=== PATIENT | female | born 1985 | race Caucasian/White ===

== ENCOUNTER 2017-07-28 14:36 | Inpatient (IN) | payer MEDICAID, MEDICARE, OTHER ==
[~2017-07-28] VITALS: Ht 160 cm; Wt 59.0 kg
[~2017-07-28 14:36] MED LIST: HYDR-3965 PO
[2017-07-28 15:06] LABS: BASOPHILS % (AUTO) 0.4 % (0-1); EOSINOPHILS # (AUTO) 0.1 X10'3 (0-0.9); EOSINOPHILS % (AUTO) 1.7 % (0-6); HEMATOCRIT 37.1 % (35.0-45.0); LYMPHOCYTES # (AUTO) 2.5 X10'3 (1.1-4.8); LYMPHOCYTES % (AUTO) 30.9 % (21-51); MEAN CORPUSCULAR HEMOGLOBIN 31.2 PG (27.0-31.0); MEAN CORPUSCULAR HGB CONC 34.9 % (33.0-36.5); MEAN CORPUSCULAR VOLUME 89.3 FL (78-98); MEAN PLATELET VOLUME 7.3 FL (7.4-10.4); MONOCYTES # (AUTO) 0.6 X10'3 (0-0.9); MONOCYTES % (AUTO) 6.9 % (2-12); NEUTROPHILS # (AUTO) 4.9 X10'3 (1.8-7.7); NEUTROPHILS % (AUTO) 60.1 % (42-75); PLATELET COUNT 288 X10'3 (140-440); RED BLOOD COUNT 4.16 X10'6 (4.20-5.60); RED CELL DISTRIBUTION WIDTH 13.1 % (11.5-14.5); WHITE BLOOD COUNT 8.1 X10'3 (4.5-11.0)
[2017-07-28] MEDS ORDERED: nitroGLYCERIN 0.4mg SUBLingual tab SL PRN ×2 (15:15→16:15)
[2017-07-28] MEDS ORDERED: aspirin 81mg tab.chew PO ONE (15:15)
[2017-07-28 15:20] LABS: ALANINE AMINOTRANSFERASE 21 U/L (12-78); ALBUMIN 4.2 G/DL (3.4-5.0); ALBUMIN/GLOBULIN RATIO 1.2 (1.1-1.5); ALKALINE PHOSPHATASE 62 IU/L (46-116); ANION GAP 7 (8-16); ASPARTATE AMINO TRANSFERASE 9 U/L (10-37); BILIRUBIN,TOTAL 0.5 MG/DL (0.1-1.0); BLOOD UREA NITROGEN 16 MG/DL (7-18); BUN/CREATININE RATIO 16.7 (6.6-38.0); CALCIUM 9.1 MG/DL (8.5-10.1); CHLORIDE 104 MMOL/L (99-107); CREATININE 0.96 MG/DL (0.40-0.90); GLUCOSE 101 MG/DL (70-104); POTASSIUM 3.6 MMOL/L (3.5-5.1); SODIUM 140 MMOL/L (135-145); TOTAL PROTEIN 7.6 G/DL (6.4-8.2); eGFR 68 ML/MIN
[2017-07-28 15:43] LABS: MAGNESIUM 1.9 MG/DL (1.5-2.4)
[2017-07-28] MEDS ORDERED: HYDROmorphone inj. 0.5 MG/0.5 ML DISP.SYRIN IV PRN ×2 (16:15)
[2017-07-28] MEDS ORDERED: magnesium hydroxide 30ml (MOM) UD suspension PO PRN (16:15)
[2017-07-28] MEDS ORDERED: morphine 5 MG/ML injection IV PRN ×2 (16:15)
[2017-07-28] MEDS ORDERED: regadenoson 0.4mg/5ml syringe IV PRN (16:15)
[2017-07-28] MEDS ORDERED: ondansetron/PF 4mg/2ml inj IV PRN (16:15)
[2017-07-28] MEDS ORDERED: acetaminophen 650mg rectal suppository RC PRN (16:15)
[2017-07-28] MEDS ORDERED: mag hydrox/Alum hydrox/simeth 30ml oral suspension PO PRN (16:15)
[2017-07-28] MEDS ORDERED: metoclopramide 5 mg/ml inj IV PRN (16:15)
[2017-07-28] MEDS ORDERED: diphenhydrAMINE 25mg capsule PO PRN (16:15)
[2017-07-28] MEDS ORDERED: acetaminophen 325mg tablet PO PRN (16:15)
[2017-07-28] MEDS ORDERED: metoprolol tartrate 1mg/ml inj IV PRN (16:15)
[2017-07-28] MEDS ORDERED: bisacodyl 10mg suppository rectal RC PRN (16:15)
[2017-07-28] MEDS ORDERED: HYDROcodone/acetaminophen 5mg/325mg tablet PO PRN (16:15)
[2017-07-28] MEDS ORDERED: diphenhydrAMINE 50 mg/ml inj IV PRN (16:15)
[2017-07-28] MEDS ORDERED: aminophylline 250mg/10ml inj. IV PRN (16:15)
[2017-07-28] MEDS ORDERED: HYDROcodone/acetaminophen 10/325mg tab PO PRN (16:15)
[2017-07-28 16:32] LABS: INR 1.1 INR; PARTIAL THROMBOPLASTIN TIME 28 SECONDS (22-32); PROTHROMBIN TIME 11.2 SECONDS (9.0-12.0)
[2017-07-28 16:39] LABS: HEMOGLOBIN A1C 5.4 % (4.5-6.2)
[2017-07-28] MEDS: normal saline 1000ml 1,000 ML IV SCH (17:04)
[2017-07-28 17:07] LABS: LIPASE 174 U/L (73-393); PHOSPHORUS 3.6 MG/DL (2.3-4.5)
[2017-07-28 17:42] LABS: CLARITY,URINE CLEAR (Clear); COLOR,URINE YELLOW (Yellow); GLUCOSE, URINE NEGATIVE (Neg); KETONES,URINE NEGATIVE (Neg); LEUKOCYTE ESTERASE ,URINE NEGATIVE (Neg); NITRITES, URINE NEGATIVE (Neg); OCCULT BLOOD,URINE MODERATE (Neg); PH,URINE 5.5 (4.8-8.0); PROTEIN,URINE NEGATIVE (Neg); UROBILINOGEN,URINE 0.2 E.U/dL (0.2-1.0)
[2017-07-28 17:46] LABS: UA COLLECTION TYPE CLN CATCH MIDSTREAM
[2017-07-28 17:47] LABS: BACTERIA,URINE 1+ /HPF (Neg); RBC,URINE NONE SEEN /HPF (0-2); WBC,URINE NONE SEEN /HPF (0-4)
[2017-07-28 17:48] LABS: MUCUS STRANDS FEW /LPF (Neg); SQUAMOUS EPITHELIAL CELL,UR MODERATE /LPF (FEW)
[2017-07-28 18:00] VITALS: BP 116/67
[2017-07-28] MEDS: docusate sod 100mg capsule PO SCH (20:00)
[2017-07-28] MEDS ORDERED: temazepam 15mg capsule PO PRN (21:00)
[2017-07-29] VITALS (18 sets, daily range): BP systolic 99–134; BP diastolic 51–75
[2017-07-29] MEDS: heparin, porcine 5000 units/ml vial SQ SCH ×4 (00:31→23:10)
[2017-07-29] MEDS: normal saline 1000ml 1,000 ML IV SCH ×3 (02:13→19:13)
[2017-07-29 03:56] LABS: BASOPHILS % (AUTO) 0.3 % (0-1); EOSINOPHILS # (AUTO) 0.1 X10'3 (0-0.9); EOSINOPHILS % (AUTO) 2.6 % (0-6); HEMATOCRIT 35.9 % (35.0-45.0); HEMOGLOBIN 12.2 g/dl (12.0-16.0); LYMPHOCYTES # (AUTO) 2.6 X10'3 (1.1-4.8); LYMPHOCYTES % (AUTO) 44.2 % (21-51); MEAN CORPUSCULAR HEMOGLOBIN 30.7 PG (27.0-31.0); MEAN CORPUSCULAR VOLUME 90.2 FL (78-98); MEAN PLATELET VOLUME 7.3 FL (7.4-10.4); MONOCYTES # (AUTO) 0.4 X10'3 (0-0.9); MONOCYTES % (AUTO) 7.6 % (2-12); NEUTROPHILS # (AUTO) 2.6 X10'3 (1.8-7.7); NEUTROPHILS % (AUTO) 45.3 % (42-75); PLATELET COUNT 234 X10'3 (140-440); RED BLOOD COUNT 3.97 X10'6 (4.20-5.60); RED CELL DISTRIBUTION WIDTH 13.1 % (11.5-14.5); WHITE BLOOD COUNT 5.8 X10'3 (4.5-11.0)
[2017-07-29 04:16] LABS: ALANINE AMINOTRANSFERASE 18 U/L (12-78); ALBUMIN 3.4 G/DL (3.4-5.0); ALBUMIN/GLOBULIN RATIO 1.2 (1.1-1.5); ALKALINE PHOSPHATASE 52 IU/L (46-116); ANION GAP 11 (8-16); ASPARTATE AMINO TRANSFERASE 8 U/L (10-37); BILIRUBIN,TOTAL 0.6 MG/DL (0.1-1.0); BLOOD UREA NITROGEN 13 MG/DL (7-18); BUN/CREATININE RATIO 16.5 (6.6-38.0); CALCIUM 8.3 MG/DL (8.5-10.1); CHLORIDE 108 MMOL/L (99-107); CHOL/HDL RATIO 2.2 (0.00-4.99); CHOLESTEROL 131 MG/DL (0-200); CREATININE 0.79 MG/DL (0.40-0.90); GLUCOSE 90 MG/DL (70-104); HDL CHOLESTEROL 60 MG/DL (35-60); LDL CHOLESTEROL 67 MG/DL (50-100); POTASSIUM 3.6 MMOL/L (3.5-5.1); SODIUM 143 MMOL/L (135-145); TOTAL CARBON DIOXIDE 24.3 MMOL/L (24-32); TOTAL PROTEIN 6.3 G/DL (6.4-8.2); TRIGLYCERIDES 25 MG/DL (20-135); TROPONIN I < 0.04 NG/ML (0.0-0.05); eGFR 85 ML/MIN
[2017-07-29] MEDS: aspirin 81mg tab.chew PO SCH (07:38)
[2017-07-29] MEDS: docusate sod 100mg capsule PO SCH ×2 (07:38→19:16)
[2017-07-29] MEDS: pantoprazole 40mg Tablet.DR PO SCH (07:38)
[2017-07-29] MEDS ORDERED: nitroGLYCERIN 0.2mg/hour patch TD SCH (08:00)
[2017-07-29] MEDS ORDERED: aminophylline inj. 10 ML IV ONE (08:25)
[2017-07-29] MEDS ORDERED: regadenoson 0.4mg/5ml syringe IV ONE (08:25)
[2017-07-30 05:00] LABS: BASOPHILS % (AUTO) 0.7 % (0-1); EOSINOPHILS # (AUTO) 0.2 X10'3 (0-0.9); HEMATOCRIT 34.4 % (35.0-45.0); HEMOGLOBIN 11.9 g/dl (12.0-16.0); LYMPHOCYTES # (AUTO) 2.3 X10'3 (1.1-4.8); LYMPHOCYTES % (AUTO) 39.8 % (21-51); MEAN CORPUSCULAR HEMOGLOBIN 31.2 PG (27.0-31.0); MEAN CORPUSCULAR HGB CONC 34.5 % (33.0-36.5); MEAN CORPUSCULAR VOLUME 90.3 FL (78-98); MEAN PLATELET VOLUME 7.3 FL (7.4-10.4); MONOCYTES # (AUTO) 0.4 X10'3 (0-0.9); MONOCYTES % (AUTO) 7.7 % (2-12); NEUTROPHILS # (AUTO) 2.8 X10'3 (1.8-7.7); NEUTROPHILS % (AUTO) 48.8 % (42-75); PLATELET COUNT 227 X10'3 (140-440); RED BLOOD COUNT 3.81 X10'6 (4.20-5.60); RED CELL DISTRIBUTION WIDTH 12.8 % (11.5-14.5); WHITE BLOOD COUNT 5.8 X10'3 (4.5-11.0)
[2017-07-30 05:35] LABS: ALANINE AMINOTRANSFERASE 12 U/L (12-78); ALBUMIN 3.2 G/DL (3.4-5.0); ALBUMIN/GLOBULIN RATIO 1.1 (1.1-1.5); ALKALINE PHOSPHATASE 49 IU/L (46-116); ANION GAP 8 (8-16); ASPARTATE AMINO TRANSFERASE 9 U/L (10-37); BILIRUBIN,TOTAL 0.2 MG/DL (0.1-1.0); BLOOD UREA NITROGEN 13 MG/DL (7-18); BUN/CREATININE RATIO 13.4 (6.6-38.0); CALCIUM 8.5 MG/DL (8.5-10.1); CHLORIDE 108 MMOL/L (99-107); CREATININE 0.97 MG/DL (0.40-0.90); GLUCOSE 105 MG/DL (70-104); POTASSIUM 4.1 MMOL/L (3.5-5.1); SODIUM 143 MMOL/L (135-145); TOTAL CARBON DIOXIDE 26.9 MMOL/L (24-32); TOTAL PROTEIN 6.2 G/DL (6.4-8.2); eGFR 67 ML/MIN
[2017-07-30 07:00] VITALS: BP 101/54
[2017-07-30] MEDS: heparin, porcine 5000 units/ml vial SQ SCH (08:00)
[2017-07-30] MEDS: pantoprazole 40mg Tablet.DR PO SCH (08:47)
[2017-07-30] MEDS: aspirin 81mg tab.chew PO SCH (08:47)
[2017-07-30] MEDS: docusate sod 100mg capsule PO SCH (08:47)
[2017-07-30] MEDS: normal saline 1000ml 1,000 ML IV SCH (08:48)
[2017-07-30 11:00] VITALS: BP 100/59
[2017-07-30] MEDS ORDERED: ASPI81TA52 PO (11:54)
== END 2017-07-30 12:16 | disposition home or self-care (01) | DRG 313 ==
LOC: ER 14:37 → ED HOLD 16:13 → SUR 3N 17:19
PROVIDERS: ADMIT Family Medicine; ATTEND Family Medicine
PROC: 4A02XM4 Measurement of Cardiac Total Activity, External Approach (ICD-10-PCS; principal; 2017-07-28)
PROC: 3E073KZ Introduction of Other Diagnostic Substance into Coronary Artery, Percutaneous Approach (ICD-10-PCS; 2017-07-28)
DX: R07.2 Precordial pain (principal); I24.9 Acute ischemic heart disease, unspecified; I48.91 Unspecified atrial fibrillation; Z95.1 Presence of aortocoronary bypass graft; Z95.2 Presence of prosthetic heart valve; Z98.51 Tubal ligation status; Z79.899 Other long term (current) drug therapy
CPT/HCPCS: 36415; 71045; 78452; 80053; 80061; 81001; 83036; 83690; 83735; 83880; 84100; 84484; 85025; 85610; 85730; 87070; 93005; 93017; 93306; 99285; A9500; J0280; J1644; J2405; J7030

== ENCOUNTER 2021-05-22 12:25 | Emergency (ER) | payer OTHER | END 2021-05-22 13:00 | disposition home or self-care (01) | LOC: ER 12:25 | DX: Z77.21 Contact with and (suspected) exposure to potentially hazardous body fluids (principal); I11.9 Hypertensive heart disease without heart failure | CPT/HCPCS: 99281 ==

== ENCOUNTER 2022-11-08 07:00 | Emergency (ER) | payer OTHER ==
[~2022-11-08] VITALS: Ht 160 cm; Wt 63.6 kg
[2022-11-08 07:03] VITALS: BP 159/81
[2022-11-08] MEDS ORDERED: acetaminophen 325mg tablet PO ONE (07:40)
[2022-11-08] MEDS ORDERED: ibuprofen tablet 400 MG TABLET PO ONE (07:40)
== END 2022-11-08 07:50 | disposition home or self-care (01) ==
LOC: ER 07:01
DX: S29.9XXA Unspecified injury of thorax, initial encounter (principal); X58.XXXA Exposure to other specified factors, initial encounter; Y93.89 Activity, other specified; Y92.89 Other specified places as the place of occurrence of the external cause; Y99.8 Other external cause status
CPT/HCPCS: 99283

== ENCOUNTER 2022-12-10 14:28 | Emergency (ER) | payer BC, OTHER ==
[~2022-12-10] VITALS: Ht 160 cm; Wt 70.0 kg
[2022-12-10 14:47] LABS: BASOPHILS # (AUTO) 0.1 X10'3 (0-0.2); BASOPHILS % (AUTO) 0.7 % (0-1); EOSINOPHILS # (AUTO) 0.1 X10'3 (0-0.9); EOSINOPHILS % (AUTO) 1.3 % (0-6); HEMATOCRIT 39.3 % (35.0-45.0); HEMOGLOBIN 13.1 g/dl (12.0-16.0); LYMPHOCYTES % (AUTO) 24.8 % (21-51); MEAN CORPUSCULAR HEMOGLOBIN 30.6 PG (27.0-31.0); MEAN CORPUSCULAR HGB CONC 33.4 g/dL (33.0-36.5); MEAN CORPUSCULAR VOLUME 91.5 FL (78-98); MEAN PLATELET VOLUME 6.5 FL (7.4-10.4); MONOCYTES # (AUTO) 0.5 X10'3 (0-0.9); MONOCYTES % (AUTO) 6.8 % (2-12); NEUTROPHILS # (AUTO) 5.3 X10'3 (1.8-7.7); NEUTROPHILS % (AUTO) 66.4 % (42-75); PLATELET COUNT 289 X10'3 (140-440); RED BLOOD COUNT 4.29 X10'6 (4.20-5.60); RED CELL DISTRIBUTION WIDTH 12.8 % (11.5-14.5); WHITE BLOOD COUNT 8.1 X10'3 (4.5-11.0)
[2022-12-10 15:01] LABS: ALANINE AMINOTRANSFERASE 20 U/L (12-78); ALBUMIN 4.1 G/DL (3.4-5.0); ALBUMIN/GLOBULIN RATIO 1.2 (1.1-1.5); ALKALINE PHOSPHATASE 66 IU/L (46-116); ANION GAP 9 (8-16); ASPARTATE AMINO TRANSFERASE 10 U/L (10-37); BILIRUBIN,TOTAL 0.4 MG/DL (0.1-1.0); BLOOD UREA NITROGEN 10 MG/DL (7-18); BUN/CREATININE RATIO 11.1 (10.0-20.0); CALCIUM 9.1 MG/DL (8.5-10.1); CHLORIDE 102 MMOL/L (99-107); GLUCOSE 96 MG/DL (70-104); SODIUM 138 MMOL/L (135-145); TOTAL CARBON DIOXIDE 26.8 MMOL/L (24-32); TOTAL PROTEIN 7.6 G/DL (6.4-8.2); eGFR 71 ML/MIN
[2022-12-10 17:41] VITALS: BP 102/65
== END 2022-12-10 17:43 | disposition home or self-care (01) ==
LOC: ER 14:28
DX: R07.9 Chest pain, unspecified (principal); I51.9 Heart disease, unspecified
CPT/HCPCS: 36415; 71045; 80053; 83880; 84484; 85025; 93005; 99285

== ENCOUNTER 2022-12-21 12:58 | Outpatient (CLI) | payer BC | END 2022-12-21 23:59 | disposition home or self-care (01) | LOC: CARD DIAG 12:58 | PROVIDERS: ATTEND Student in an Organized Health Care Education/Training Program | DX: R07.9 Chest pain, unspecified (principal) | CPT/HCPCS: 93306 ==

== ENCOUNTER 2024-03-24 10:44 | Outpatient (CLI) | payer BC ==
[~2024-03-24 10:44] MED LIST changes: +ASPI-611 PO; -HYDR-3965 PO; +METO-395 PO
== END 2024-03-24 23:59 | disposition home or self-care (01) ==
LOC: CARD DIAG 10:44
PROVIDERS: ATTEND Internal Medicine Interventional Cardiology
DX: I08.3 Combined rheumatic disorders of mitral, aortic and tricuspid valves (principal); R07.9 Chest pain, unspecified; Z95.2 Presence of prosthetic heart valve; I47.20 Ventricular tachycardia, unspecified; Z95.1 Presence of aortocoronary bypass graft
CPT/HCPCS: 93306

== ENCOUNTER 2024-07-04 18:32 | Emergency (ER) | payer BC ==
[~2024-07-04] VITALS: Ht 160 cm; Wt 65.9 kg
[2024-07-04] MEDS: ketorolac trometh 15mg/ml vial 15 MG/ML ML IV ONE (19:41)
[2024-07-04 19:44] VITALS: TEMP 98.7
[2024-07-04 19:55] VITALS: BP 133/67; PULSE 59; RESP 16; O2SAT 100
== END 2024-07-04 20:02 | disposition home or self-care (01) ==
LOC: ER 18:33
DX: R07.89 Other chest pain (principal); I48.91 Unspecified atrial fibrillation; Z79.82 Long term (current) use of aspirin; Z79.899 Other long term (current) drug therapy; Z95.1 Presence of aortocoronary bypass graft
CPT/HCPCS: 71045; 93005; 96374; 99283; J1885

== ENCOUNTER 2024-07-13 10:16 | Outpatient (CLI) | payer BC | END 2024-07-13 23:59 | disposition home or self-care (01) | LOC: RAD 10:16 | PROVIDERS: ATTEND Student in an Organized Health Care Education/Training Program | DX: R07.9 Chest pain, unspecified (principal) | CPT/HCPCS: 71045 ==

== ENCOUNTER 2024-09-09 08:46 | Outpatient (CLI) | payer BC | END 2024-09-09 23:59 | disposition home or self-care (01) | LOC: RAD 08:46 | PROVIDERS: ATTEND Student in an Organized Health Care Education/Training Program | DX: I51.7 Cardiomegaly (principal); Z95.818 Presence of other cardiac implants and grafts | CPT/HCPCS: 71250 ==

== ENCOUNTER 2024-10-26 08:58 | Outpatient (CLI) | payer BC ==
[2024-10-26 09:45] LABS: BASOPHILS % (AUTO) 0.5 % (0-1); EOSINOPHILS # (AUTO) 0.1 X10'3 (0-0.9); HEMATOCRIT 41.7 % (35.0-45.0); HEMOGLOBIN 13.3 g/dl (12.0-16.0); LYMPHOCYTES # (AUTO) 1.6 X10'3 (1.1-4.8); LYMPHOCYTES % (AUTO) 29.9 % (21-51); MEAN CORPUSCULAR HGB CONC 31.9 g/dL (33.0-36.5); MEAN PLATELET VOLUME 6.7 FL (7.4-10.4); MONOCYTES # (AUTO) 0.4 X10'3 (0-0.9); MONOCYTES % (AUTO) 7.3 % (2-12); NEUTROPHILS # (AUTO) 3.1 X10'3 (1.8-7.7); NEUTROPHILS % (AUTO) 60.3 % (42-75); PLATELET COUNT 349 X10'3 (140-440); RED BLOOD COUNT 4.59 X10'6 (4.20-5.60); RED CELL DISTRIBUTION WIDTH 12.9 % (11.5-14.5); WHITE BLOOD COUNT 5.2 X10'3 (4.5-11.0)
[2024-10-26 10:01] LABS: HEMOGLOBIN A1C 5.3 % (4.5-6.2)
[2024-10-26 10:05] LABS: ALANINE AMINOTRANSFERASE 14 U/L (12-78); ALBUMIN 3.8 G/DL (3.4-5.0); ALBUMIN/GLOBULIN RATIO 1.1 (1.1-1.5); ALKALINE PHOSPHATASE 68 IU/L (46-116); ANION GAP 6 (8-16); ASPARTATE AMINO TRANSFERASE 6 U/L (10-37); BILIRUBIN,TOTAL 0.4 MG/DL (0.1-1.0); BLOOD UREA NITROGEN 14 MG/DL (7-18); BUN/CREATININE RATIO 19.7 (10.0-20.0); CALCIUM 9.1 MG/DL (8.5-10.1); CHLORIDE 106 MMOL/L (99-107); CHOL/HDL RATIO 2.4 (0.00-4.99); CHOLESTEROL 178 MG/DL (0-200); CREATININE 0.71 MG/DL (0.40-0.90); FREE T4 (FREE THYROXINE) 0.93 NG/DL (0.73-1.40); GLUCOSE 94 MG/DL (70-104); HDL CHOLESTEROL 73 MG/DL (35-60); LDL CHOLESTEROL 92 MG/DL (50-100); POTASSIUM 4.1 MMOL/L (3.5-5.1); SODIUM 142 MMOL/L (135-145); THYROID STIMULATING HORMONE 0.93 ulU/ml (0.34-4.50); TOTAL CARBON DIOXIDE 29.7 MMOL/L (24-32); TOTAL PROTEIN 7.4 G/DL (6.4-8.2); TRIGLYCERIDES 41 MG/DL (20-135); eGFR > 90 ML/MIN
[2024-10-27 11:15] LABS: FOLATE SERUM(FOLIC) 13.8 ng/mL (>3.0)
== END 2024-10-26 23:59 | disposition home or self-care (01) ==
LOC: LAB 08:58
PROVIDERS: ATTEND Physician Assistant
DX: E55.9 Vitamin D deficiency, unspecified (principal); R53.83 Other fatigue; Z83.3 Family history of diabetes mellitus; E53.8 Deficiency of other specified B group vitamins; Z13.228 Encounter for screening for other metabolic disorders; Z13.0 Encounter for screening for diseases of the blood and blood-forming organs and certain disorders involving the immune mechanism
CPT/HCPCS: 36415; 80053; 80061; 82306; 82607; 82746; 83036; 84439; 84443; 85025

== ENCOUNTER 2024-12-07 06:38 | Day surgery (SDC) | payer BC ==
[2024-12-02 13:40] LABS: BASOPHILS # (AUTO) 0.1 X10'3 (0-0.2); EOSINOPHILS # (AUTO) 0.1 X10'3 (0-0.9); EOSINOPHILS % (AUTO) 1.3 % (0-6); LYMPHOCYTES # (AUTO) 1.7 X10'3 (1.1-4.8); LYMPHOCYTES % (AUTO) 30.3 % (21-51); MEAN CORPUSCULAR HEMOGLOBIN 30.6 PG (27.0-31.0); MEAN CORPUSCULAR HGB CONC 33.9 g/dL (33.0-36.5); MEAN CORPUSCULAR VOLUME 90.4 FL (78-98); MEAN PLATELET VOLUME 6.9 FL (7.4-10.4); MONOCYTES # (AUTO) 0.4 X10'3 (0-0.9); MONOCYTES % (AUTO) 7.3 % (2-12); NEUTROPHILS # (AUTO) 3.4 X10'3 (1.8-7.7); NEUTROPHILS % (AUTO) 60.1 % (42-75); PRE OP HEMATOCRIT 39.1 % (35.0-45.0); PRE OP HEMOGLOBIN 13.2 g/dL (12.0-16.0); PRE OP PLATELET COUNT 289 X10'3 (140-440); PRE OP WHITE BLOOD COUNT 5.7 10'3 (4.8-10.8); RED BLOOD COUNT 4.32 X10'6 (4.20-5.60)
--- NOTE | 2024-12-02 13:48 | RADIOLOGY REPORT ---
DI CHEST,TWO VIEWS, HISTORY: PREOP COMPARISON: None None TECHNICAL DATA: 2 view of the chest was obtained. FINDINGS: Lines and tubes: A stent is seen in the heart. Cardiomediastinal silhouette: normal Pulmonary vasculature: normal Lung expansion: normal Lung airspace: normal Lung interstitium: normal Pleura: normal Pneumothorax: no Bones: Unremarkable Other: no IMPRESSION: No acute intrathoracic abnormality.
[2024-12-02 13:55] LABS: HCG SERUM QL NEGATIVE
[2024-12-02 13:57] LABS: ALBUMIN/GLOBULIN RATIO 1.1 (1.1-1.5); ALKALINE PHOSPHATASE 71 IU/L (46-116); BLOOD UREA NITROGEN 10 MG/DL (7-18); BUN/CREATININE RATIO 11.4 (10.0-20.0); CALCIUM 9.6 MG/DL (8.5-10.1); CHLORIDE 104 MMOL/L (99-107); CREATININE 0.88 MG/DL (0.40-0.90); PRE OP ALT 19 U/L (30-65); PRE OP ANION GAP 7 (8-16); PRE OP AST 8 U/L (10-37); PRE OP BILIRUB, TOTAL 0.4 MG/DL (0.0-1.0); PRE OP GLUCOSE 98 MG/DL (70-104); PRE OP POTASSIUM 3.8 MMOL/L (3.4-5.1); PRE OP SODIUM 142 MMOL/L (135-145); TOTAL CARBON DIOXIDE 31.4 MMOL/L (24-32); TOTAL PROTEIN 7.6 G/DL (6.4-8.2); eGFR 72 ML/MIN
[~2024-12-07] VITALS: Ht 160 cm; Wt 66.6 kg
[2024-12-07] VITALS (10 sets, daily range): BP systolic 100–128; BP diastolic 44–77; PULSE 42–67; RESP 12–17; TEMP 98.6; O2SAT 98–100
[2024-12-07] MEDS: ceFAZolin 2gm/dext,iso 50mL 50 ML IV ONE (05:30)
[~2024-12-07 06:38] MED LIST changes: +DOCUMENT DATE & TIME OF BETA-BLOCKER PO ONE
[2024-12-07] MEDS ORDERED: LIDOcaine 1% 30ml preserv. free vial ONE (07:15)
[2024-12-07] MEDS ORDERED: BUPIVAcaine 0.5% inj/PF 30 ML ONE (07:16)
[2024-12-07] MEDS: ringers solution, lacted 1,000 ML IV SCH ×2 (07:21→09:21)
[2024-12-07] MEDS: famotidine 20mg tablet PO ONE (07:21)
[2024-12-07] MEDS: metoprolol tartrate 12.5mg (1/2 tablet) PO ONE (07:21)
[2024-12-07] MEDS: mupirocin 2% nasal ointment 1gm UD NS ONE (07:22)
[2024-12-07] MEDS: vancomycin/NS 1 GM ADD-VANTAGE 250 ML IV ONE (07:22)
[2024-12-07] MEDS ORDERED: fentaNYL/PF 50MCG/1 ML 2ML syringe ONE (07:56)
[2024-12-07] MEDS ORDERED: propofol inj 20 ML IV ONE (07:56)
[2024-12-07] MEDS ORDERED: midazolam 1 mg/ML 2ml injection ONE ×2 (07:56)
--- NOTE | 2024-12-07 08:06 | HISTORY AND PHYSICAL ---
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 She had a syncopal episode secondary to ventricular tachycardia at age 21. 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 She underwent subsequent coronary bypass grafting as well as pulmonary valve replacement. She has subsequently undergone an transvenous replacement of her pulmonary valve. She over the past 3-4 months has had increasing discomfort associated with her lower sternal on the right side. The this was localized to the wires. She was seen by pain control and underwent injection which resolved her pain. She is being admitted at this time for sternal wire removal. She denies shortness of breath exertional dyspnea, PND orthopnea. No anginal or pleuritic chest pain. Most recent catheterization shows occlusion of her BAÑUELOS to LAD graft but very minimal residual left main stenosis. If she indeed has a patent vein graft to her obtuse marginal. Allergies: Coded Allergies: No Known Allergies (Unverified , 07/04/24) Home Medications Home Medications Active Reported Aspir 81 (Aspirin) 81 Mg Tablet.dr 1 Tab PO DAILY 30 Days Metoprolol Succinate 25 Mg Tab.sr.24h 1 Tab PO DAILY Past Medical History Past Medical History See above Past Surgical History Past Surgical History Emergent coronary bypass grafting, pulmonary valve replacement, transvenous valve in valve pulmonary valve replacement ROS ROS Generally she denies anorexia malaise, jaundice, pruritus, fever, chills weight loss. GI she has had no nausea or vomiting, diarrhea, constipation, melena or bright red blood per rectum. she denies dysuria, pyuria, hematuria, urgency, hesitancy or frequency. Neuromuscular she has had no frequent or severe headaches. She has had no changes in her visual prakash. She does difficulty with speech, swallowing, ambulation or coordination. Cardiopulmonary is as noted in history of present illness. Exam Vitals: Vital Signs Date Time Temp Pulse Resp B/P (MAP) Pulse Ox O2 Delivery O2 Flow Rate FiO2 12/07/24 07:21 67 Cardiac: Regular rate and rhythm with a very loud grade 3/6 systolic flow murmur at the left sternal border. S2 is preserved. No S3-S4 noted. Pulmonary: Clear to auscultation and percussion. Abdomen: Soft and nontender with normoactive bowel sounds. No masses organomegaly noted. Neurologic: Awake alert and oriented x3. Normal affect. Other: Extremities free of edema. Counseling Services Smoking & Tobacco Cessation: N/A Advance Care Planning Advanced Care planning: N/A Problem\Assessment\Plan Additional Plan Actually is a 39-year-old female who is status post multiple cardiac surgeries. She now has lower sternal pain related to her sternal wires. She is being admitted at this time for sternal wire removal. The indications alternatives to surgery as well as the risks, benefits and possible complications associated with sternal wire removal in the setting him I discussed at length with Gavi. She states she understands and accepts these requests that we proceed. All of her questions were answered to her satisfaction. Visit Coding Cardiology Date of Service: Dec 07, 2024 Billing Provider: CODY MACIEL III, MD Cardiology Evaluation and Rachel: NOT BILLABLE OCDY MACIEL III, MD Dec 07, 2024 08:06
[2024-12-07] MEDS ORDERED: dexamethasone sod phosphate 4mg/ml inj. ONE (08:10)
[2024-12-07] MEDS ORDERED: labetalol 20mg/4ml (5mg/ml) syringe IV PRN (08:15)
[2024-12-07] MEDS ORDERED: HYDROmorphone/PF 0.2 MG/ML SYRINGE IV PRN ×2 (08:15)
[2024-12-07] MEDS ORDERED: hydrALAZINE 20mg/ml inj. IV PRN (08:15)
[2024-12-07] MEDS ORDERED: morphine 2 MG/ML inj. syringe IV PRN (08:15)
[2024-12-07] MEDS ORDERED: ondansetron/PF 4mg/2ml inj IV PRN (08:15)
[2024-12-07] MEDS ORDERED: morphine 4 MG/ML inj SYRINge IV PRN (08:15)
[2024-12-07] MEDS ORDERED: sevoflurane 250ml liquid IH ONE (08:18)
[2024-12-07] MEDS: BUPIVAcaine 0.5% inj/PF 30 ml vial IJ ONE (08:25)
[2024-12-07] MEDS ORDERED: acetaminophen 1,000mg/100ml IV 100 ML IV ONE (08:26)
[2024-12-07] MEDS ORDERED: HYDR-3973 PO (08:46)
[2024-12-07] MEDS ORDERED: DOCU-148 PO (08:46)
[2024-12-07] MEDS ORDERED: ondansetron/PF 4mg/2ml inj ONE (08:46)
[2024-12-07] MEDS: HYDROcodone/acetaminophen 10/325mg tab PO ONE (10:03)
[2024-12-08] MEDS ORDERED: ONDA-243 PO (13:48)
--- NOTE | 2024-12-15 10:00 | OPERATIVE REPORT ---
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 Cody Amin electrician assistant: Dakota Carlton PA-C Anesthesia: General via endotracheal tube Complications: None EBL: 20 mL Procedure: The patient is taken to the operating room placed in supine position. Following the induction of general oral endotracheal anesthesia with the placement of appropriate lines the chest, abdomen were prepped and draped sterilely. The previous median sternotomy scars were excised and the incision carried down through skin and subcutaneous tissue sharply using electrocautery for hemostasis. The sternal wires were identified. They were freed and cut. They were easily extracted. The xiphoid was then identified. It was dissected free circumferentially using electrocautery. A heavy Vera scissor was used to amputated flush with the distal end of the sternum. It was then removed. The wound was copiously irrigated with antibiotic solution. The incision was closed by reapproximating the midline fascia and subcutaneous tissue with a running 0 Vicryl. The skin was closed with a running 3-0 Monocryl subcuticular suture. A Bioclusive dressing was then placed. The patient was awakened and extubated. She was returned to the recovery room in stable condition, having tolerated the procedure satisfactorily. There were no complications. Sponge, needle and instrument counts were correct x2 at the end of the case. CODY AMIN III, MD Dec 15, 2024 10:00
== END 2024-12-07 10:39 | disposition home or self-care (01) ==
LOC: PAS 06:38
PROVIDERS: ATTEND Thoracic Surgery (Cardiothoracic Vascular Surgery)
DX: T85.848A Pain due to other internal prosthetic devices, implants and grafts, initial encounter (principal); R07.89 Other chest pain; G43.909 Migraine, unspecified, not intractable, without status migrainosus; Y83.8 Other surgical procedures as the cause of abnormal reaction of the patient, or of later complication, without mention of misadventure at the time of the procedure; Z79.899 Other long term (current) drug therapy; Z79.82 Long term (current) use of aspirin; Z95.5 Presence of coronary angioplasty implant and graft; Z98.890 Other specified postprocedural states
CPT/HCPCS: 20680; 36415; 71046; 80053; 82948; 84703; 85025; J0131; J0665; J1100; J2003; J2250; J2405; J2704; J3010; J3370; J7030; J7050; J7120; Z7506; Z7512; A4618; A6449; A7000